=== PATIENT | male | born 1995 | race Caucasian/White ===

== ENCOUNTER 2016-11-10 13:45 | Emergency (ER) | payer BC ==
[~2016-11-10] VITALS: Ht 188 cm; Wt 69.7 kg
[2016-11-10 13:50] VITALS: TEMP 36.5; Ht 188 cm; Wt 69.7 kg
[2016-11-10] MEDS ORDERED: IBUPROFEN 200 MG TAB PO STA (14:47)
[2016-11-10] MEDS ORDERED: ACETAMINOPHEN 325 MG TAB PO STA (14:47)
--- NOTE | 2016-11-10 15:13 | EMERGENCY ROOM VISIT NOTE ---
History Report prepared by Sarah: Eva Qureshi Under the Supervision of: Dr. Nando Goldstein M.D. First contact with patient: 13:58 Chief Complaint: RASH Stated Complaint: RASH/BUG BITE ON BACK OF RT LEG, POSS. INFECTION History of Present Illness The patient is a 21 year old white male with no past medical history who presents to the ED with a cc of worsening rash on the back of his right leg beginning 4 days ago. He has 3 blisters within the rash. He does have a bug bite. Positive fatigue, body aches, flu symptoms, itchiness of rash. Negative SOB, throat swelling, troubling swallowing, sloughing of the skin, nausea, vomiting, decreased appetite, urinary symptoms, rash pain. He was seen at [facility] and started on doxycycline 2 days ago for kristin mountain spotted fever. He had a negative lyme test. He was in [place] over the summer, but no travel in this past month. He admits to occasional alcohol use. He denies tobacco or drug use. Source of History: patient Onset: 4 days ago Position: leg (right) Quality: other (rash) Timing: worsening Associated Symptoms: + fatigue, No SOB, No nausea, No vomiting, No urinary symptoms Note: Pt reports itching, body aches. Pt denies throat swelling, trouble swallowing, sloughing of the skin, decreased appetite. Review of Systems See HPI for pertinent positives and negatives. A total of ten systems were reviewed and were otherwise negative. Past Medical & Surgical Medical Problems: (1) No chronic problems Family History No pertinent family history stated. Social History Smoking Status: Never Smoker Occupation Status: [employer] student Current/Historical Medications Scheduled Doxycycline Monohydrate (Monodox), 100 MG PO BID Naproxen (Naprosyn), 0 PO BID Allergies Coded Allergies: No Known Allergies (Unverified , 11/10/16) Physical Exam Vital Signs Date Time Temp Pulse Resp B/P (MAP) Pulse Ox O2 Delivery O2 Flow Rate FiO2 11/10/16 16:55 62 16 112/76 94 11/10/16 15:06 62 18 113/68 97 11/10/16 13:50 36.5 69 20 134/84 100 Room Air Physical Exam GENERAL: Awake, alert, well-appearing, NAD HENT: Normocephalic, atraumatic. EYES: Normal conjunctiva. Sclera non-icteric. NECK: Supple. No nuchal rigidity. FROM. RESPIRATORY: CTAB, no rhonchi, wheezing, crackles CARDIAC: RRR, no MRG ABDOMEN: Soft, NTND, BS+ MSK: No chest wall TTP, no LE edema NEURO: GCS 15, CN 2-12 intact, moves all 4s on command SKIN: No jaundice noted. 5cm x 6cm blanching erythema, 3 pinpoint pustules, blanches throughout. Medical Decision & Procedures Laboratory Results 11/10/16 15:00 Red Blood Count 4.15, Mean Corpuscular Volume 94.2, Mean Corpuscular Hemoglobin 32.5, Mean Corpuscular Hemoglobin Concent 34.5, Mean Platelet Volume 9.7, Neutrophils (%) (Auto) 45.5, Lymphocytes (%) (Auto) 39.9, Monocytes (%) (Auto) 12.1, Eosinophils (%) (Auto) 2.2, Basophils (%) (Auto) 0.3, Neutrophils # (Auto ) 1.46, Lymphocytes # (Auto) 1.28, Monocytes # (Auto) 0.39, Eosinophils # (Auto ) 0.07, Basophils # (Auto) 0.01 11/10/16 15:00 Test 11/10/16 15:00 White Blood Count 3.21 K/uL (4.8-10.8) Red Blood Count 4.15 M/uL (4.7-6.1) Hemoglobin 13.5 g/dL (14.0-18.0) Hematocrit 39.1 % (42-52) Mean Corpuscular Volume 94.2 fL (80-100) Mean Corpuscular Hemoglobin 32.5 pg (25-34) Mean Corpuscular Hemoglobin Concent 34.5 g/dl (32-36) Platelet Count 119 K/uL (130-400) Mean Platelet Volume 9.7 fL (7.4-10.4) Neutrophils (%) (Auto) 45.5 % Lymphocytes (%) (Auto) 39.9 % Monocytes (%) (Auto) 12.1 % Eosinophils (%) (Auto) 2.2 % Basophils (%) (Auto) 0.3 % Neutrophils # (Auto) 1.46 K/uL (1.4-6.5) Lymphocytes # (Auto) 1.28 K/uL (1.2-3.4) Monocytes # (Auto) 0.39 K/uL (0.11-0.59) Eosinophils # (Auto) 0.07 K/uL (0-0.5) Basophils # (Auto) 0.01 K/uL (0-0.2) RDW Standard Deviation 42.8 fL (36.4-46.3) RDW Coefficient of Variation 12.5 % (11.5-14.5) Immature Granulocyte % (Auto) 0.0 % Immature Granulocyte # (Auto) 0.00 K/uL (0.00-0.02) Erythrocyte Sedimentation Rate 7 mm/hr (0-14) Anion Gap 3.0 mmol/L (3-11) Est Creatinine Clear Calc Drug Dose 152.3 ml/min Estimated GFR () > 150.0 Estimated GFR (Non- 130.2 BUN/Creatinine Ratio 15.9 (10-20) Calcium Level 9.4 mg/dl (8.5-10.1) C-Reactive Protein 0.72 mg/dl (0-0.29) Lyme Disease IgG Antibody NEG (NEG) Laboratory results reviewed by me Medications Administered Medications (Trade) Dose Ordered Sig/Jackson Route Start Time Stop Time Status Last Admin Dose Admin Diphenhydramine HCl (Benadryl Cap) 25 mg NOW ONCE PO 11/10/16 15:00 11/10/16 15:01 DC 11/10/16 15:04 25 MG Ibuprofen (Advil Tab) 400 mg NOW STAT PO 11/10/16 14:47 11/10/16 14:48 DC 11/10/16 15:04 400 MG Acetaminophen (Tylenol Tab) 650 mg NOW STAT PO 11/10/16 14:47 11/10/16 14:48 DC 11/10/16 15:02 650 MG ED Course 1434: The patient was evaluated in room C7. A complete history and physical exam was performed. 1630: I reevaluated the patient. I discussed results and discharge instructions : he verbalized understanding and agreement. The patient is ready for discharge. Medical Decision Differential diagnosis: Etiologies such as contact dermatitis, viral exanthem, urticaria, allergic reaction, Hogan-Maurilio syndrome, toxic epidermal necrolysis, erythema multiforme, cellulitis, scabies, HSV, varicella, zoster, eczema, staph scalded skin syndrome, fungal infection, as well as others were entertained. The patient is a 21 year old white male with no past medical history who presents to the ED with a cc of worsening rash on the back of his right leg beginning 4 days ago. Patient was seen and evaluated at the bedside. Patient is very well-appearing and has a localized rash to the flexor crease of the right knee. Patient did have several small pustules but no other fluctuance. Patient looks and feels well. Patient did have pending lines were given the recent rash I told him to continue the doxycycline as prescribed and follow-up with daily at bedtime and oriented PCP. Patient was given strict follow-up, and discharge, and return precautions. Patient's rash does not involve any mucous membranes and is not having sloughing of skin. Patient was told return if he had any worsening symptoms. Patient agreed with plan of care patient was safely discharged to home. After d/c patient was noted to have equivocal lyme's so confirmatory testing was initiated. Medication Reconcilliation Current Medication List: was personally reviewed by me Blood Pressure Screening Patient's blood pressure: Normal blood pressure Blood pressure disposition: Did not require urgent referral Impression Primary Impression: Rash Scribe Attestation The scribe's documentation has been prepared under my direction and personally reviewed by me in its entirety. I confirm that the note above accurately reflects all work, treatment, procedures, and medical decision making performed by me. Departure Information Dispostion Home / Self-Care Referrals No Doctor, Assigned (PCP) Patient Instructions My [facility], [facility] Additional Instructions Please return to the emergency department if you have worsening or recurrent symptoms not amenable to at-home treatment. Please call for a follow-up appointment with her primary care physician. Please take your medications as prescribed. If you have other concerns and/or complaints please feel free to also call your primary care physician's office or return the ED for further evaluation, management, and treatment. You may take 600 mg Ibuprofen every 6 hours as needed for pain with food for no more than 2 consecutive days. You may take tylenol 1000mg every 6 hours as needed for pain. You may take motrin and tylenol separately or at the same time. You may apply a small amount of benadryl or cortisone cream/ointment to affected area several times/day for itching but for no more than 3 consecutive days. You may take benadryl or anti-histamines for itchiness as needed although it may make you drowsy. You have been examined and treated today on an emergency basis only. This is not a substitute for, or an effort to provide, complete comprehensive medical care. It is impossible to recognize and treat all injuries or illnesses in a single emergency department visit. It is therefore important that you follow up closely with [facility]. Call as soon as possible for an appointment. Thank you for your time and consideration. I look forward to speaking with you again soon. Please don't hesitate to call us if you have any questions. School Instructions Return To School: 1 day Specific Date: 11/11/16
[2016-11-10] MEDS ORDERED: DOXY100C76 PO (15:14)
[2016-11-10] MEDS ORDERED: NAPR250T2 PO (15:14)
[2016-11-10 15:15] LABS: BASO % 0.3 %; BASO ABS # 0.01 K/uL (0-0.2); COMPLETE YES; EOS % 2.2 %; HEMATOCRIT 39.1 % (42-52); LYMPH % 39.9 %; LYMPH ABS # 1.28 K/uL (1.2-3.4); MEAN CELL VOLUME 94.2 fL (80-100); MEAN CORPUSCULAR HEMOGLOBIN 32.5 pg (25-34); MEAN CORPUSCULAR HGB CONC 34.5 g/dl (32-36); MEAN PLATELET VOLUME 9.7 fL (7.4-10.4); MONO % 12.1 %; NEUT % 45.5 %; PLATELET COUNT 119 K/uL (130-400); RED BLOOD COUNT 4.15 M/uL (4.7-6.1); WHITE BLOOD COUNT 3.21 K/uL (4.8-10.8)
[2016-11-10 15:34] LABS: BLOOD UREA NITROGEN 12 mg/dl (7-18); BUN/CREATININE RATIO 15.9 (10-20); C-REACTIVE PROTEIN 0.72 mg/dl (0-0.29); CALCIUM 9.4 mg/dl (8.5-10.1); CARBON DIOXIDE 29 mmol/L (21-32); CHLORIDE 108 mmol/L (98-107); CREATININE 0.75 mg/dl (0.60-1.40); GLUCOSE 86 mg/dl (70-99); SODIUM 140 mmol/L (136-145)
[2016-11-10 16:34] LABS: LYME DISEASE AB IGG NEG (NEG)
[2016-11-10 16:54] LABS: LYME DISEASE AB IGM EQUIVOCAL (NEG)
[2016-11-10 16:55] VITALS: BP 112/76; PULSE 62; O2SAT 94
[2016-11-16 09:50] LABS: 18KDIGG BAND NONREACTIVE (NONREACTIVE); 23KDIGG BAND REACTIVE (NONREACTIVE); 23KDIGM BAND REACTIVE (NONREACTIVE); 28KDIGG BAND NONREACTIVE (NONREACTIVE); 30KDIGG BAND NONREACTIVE (NONREACTIVE); 39KDIGG BAND NONREACTIVE (NONREACTIVE); 39KDIGM BAND NONREACTIVE (NONREACTIVE); 41KDIGG BAND REACTIVE (NONREACTIVE); 41KDIGM BAND NONREACTIVE (NONREACTIVE); 45KDIGG BAND NONREACTIVE (NONREACTIVE); 58KDIGG BAND NONREACTIVE (NONREACTIVE); 66KDIGG BAND NONREACTIVE (NONREACTIVE); 93KDIGG BAND NONREACTIVE (NONREACTIVE)
== END 2016-11-10 16:58 | disposition home or self-care (01) ==
LOC: C.EDB 13:47 → C.EDC 16:58
DX: R21 Rash and other nonspecific skin eruption (principal)